=== PATIENT | male | born 1955 | race African-American/Black ===

== ENCOUNTER 2021-08-19 11:32 | Emergency (ER) | payer MEDICARE, MEDICAID ==
[~2021-08-19] VITALS: Ht 172.7 cm; Wt 70.0 kg
[~2021-08-19 11:32] MED LIST: WARF5TAB76 PO; WARF7.5T22 PO
[2021-08-19 11:39] VITALS: BP 168/78
[2021-08-19] MEDS ORDERED: ACETAMINOPHEN 325MG TABLET PO ONE (12:15)
[2021-08-19 12:57] LABS: BASOPHILS % 0.5 % (0.0-2.0); EOSINOPHILS % 1.5 % (0.0-5.0); HEMATOCRIT. 46.8 % (42.0-52.0); HEMOGLOBIN. 15.2 g/dL (14.0-18.0); LYMPHOCYTES % 26.2 % (20.0-50.0); MEAN CORPUSCULAR HEMOGLOBIN 23.8 pg (28.0-32.0); MEAN CORPUSCULAR VOLUME 73.3 fL (80.0-94.0); MEAN PLATELET VOLUME 9.6 fl (7.4-10.4); MONOCYTES % 8.1 % (2.0-8.0); NEUTROPHILS % 63.7 % (40.0-76.0); PLATELET 149 x1000/uL (130-400); RED BLOOD CELL COUNT 6.39 mill/uL (4.7-6.1); RED CELL DISTRIBUTION WIDTH 17.1 % (11.6-14.6)
[2021-08-19 13:10] LABS: CHLORIDE 109 mEq/L (98-107)
[2021-08-19] MEDS ORDERED: HYDROCODONE/ACETAMINOPHEN 5/325MG TABLET PO ONE (14:00)
[2021-08-19] MEDS ORDERED: ACET650T37 MT (14:40)
[2021-08-19] MEDS ORDERED: METH-653 MT (14:40)
== END 2021-08-19 15:26 | disposition home or self-care (01) ==
LOC: ER 11:42
DX: S20.219A Contusion of unspecified front wall of thorax, initial encounter (principal); I11.9 Hypertensive heart disease without heart failure; Z95.2 Presence of prosthetic heart valve; Z79.01 Long term (current) use of anticoagulants; V43.62XA Car passenger injured in collision with other type car in traffic accident, initial encounter; W22.12XA Striking against or struck by front passenger side automobile airbag, initial encounter; Y93.89 Activity, other specified; Y92.488 Other paved roadways as the place of occurrence of the external cause
CPT/HCPCS: 36415; 71046; 80053; 84484; 85025; 93005; 99285